=== PATIENT | female | born 1960 | race Caucasian/White ===

== ENCOUNTER 2016-06-10 01:23 | Emergency (ER) | payer MEDICARE, OTHER | END 2016-06-11 02:30 | disposition home or self-care (01) | LOC: ER 01:23 | DX: R60.0 Localized edema (principal); I87.8 Other specified disorders of veins; F17.210 Nicotine dependence, cigarettes, uncomplicated; Z88.2 Allergy status to sulfonamides | CPT/HCPCS: 99282; 99283 ==